=== PATIENT | male | born 1950 | race Caucasian/White ===

== ENCOUNTER 2016-11-01 11:39 | Emergency (ER) | payer MEDICARE, OTHER ==
--- NOTE | 2016-11-01 13:23 | RAD ---
CHEST - 2 VIEWS COMPARISON: Chest 2 views, 08/28/2014 HISTORY: Cough for 4 days. Productive yellow sputum. FINDINGS: Views: Frontal and lateral chest Lungs: Normal Heart and vessels: Normal Trachea and bronchi: Normal Mediastinum and sang: Normal Costophrenic sulci: Normal Chest wall and bones: Normal. Upper abdomen: Normal. IMPRESSION: Negative 2 view chest.
== END 2016-11-01 13:38 | disposition home or self-care (01) ==
LOC: ED 11:39
DX: J40 Bronchitis, not specified as acute or chronic (principal); I48.91 Unspecified atrial fibrillation; I25.2 Old myocardial infarction; I10 Essential (primary) hypertension; E11.9 Type 2 diabetes mellitus without complications; Z79.01 Long term (current) use of anticoagulants; Z79.84 Long term (current) use of oral hypoglycemic drugs

== ENCOUNTER 2016-12-10 07:07 | Day surgery (SDC) | payer MEDICARE, OTHER ==
[~2016-12-10 07:07] MED LIST: FENTANYL 250 MCG/5 ML AMP IV PRN; LACTATED RINGERS 1,000 ML IV SCH; LIDOCAINE Viscous 2% 15 ML UDCUP PO PRN; MIDAZOLAM HCL 5 MG/5 ML VIAL IV PRN
[2016-12-10] MEDS ORDERED: IV START KIT ONE (07:35)
[2016-12-10] MEDS ORDERED: LACTATED RINGERS 1,000 ML ONE (07:35)
[2016-12-10] MEDS ORDERED: LIDOCAINE Viscous 2% 15 ML UDCUP ONE (08:54)
[2016-12-10] MEDS ORDERED: PROPOFOL 20 ML IV ONE (08:55)
[2016-12-10] MEDS ORDERED: ALBUTEROL/IPRATROPIUM 2.5/0.5 MG 3 ML/EACH DOSE ONE (09:13)
[2016-12-10] MEDS ORDERED: ALBUTEROL/IPRATROPIUM 2.5/0.5 MG 3 ML/EACH DOSE NEB ONE (09:17)
--- NOTE | 2016-12-14 10:21 | SURGPATH ---
[facility] [address] [place] [id number] Patient Name: KAYA ZURITA MR#: [id number] : 1950 Gender: M Specimen #: [id number] Collected: 12/10/2016 Received: 12/13/2016 Reported: 12/14/2016 Submitting Phys: YUVAL DIEHL Copy To Phys: SILV [facility] OLIVIA SHAH Clinical History / Pre-Operative Diagnosis: NON-ALCOHOLIC CIRRHOSIS Specimen Source / Surgical Procedure Performed: ANTRAL BIOPSY Interpretation: GASTRIC ANTRUM, BIOPSY: - NO PATHOLOGIC ABNORMALITIES Electronically Signed Out Urbano Max M.D. Gross Description: The specimen is received in a formalin filled container labeled with the patient's name and "antral biopsy". Two holland biopsies are 0.2 and 0.5 cm. Totally embedded in one cassette. Adama Glover Microscopic Description: The sections show fragments of gastric mucosa exhibiting a normal architectural pattern. There are no inflammatory or neoplastic features and there are no Helicobacter-like organisms identified. 1: [id number] K74.69
== END 2016-12-10 09:52 | disposition home or self-care (01) ==
LOC: SDC 07:07
PROVIDERS: ATTEND Internal Medicine Gastroenterology
PROC: 0DB68ZX Excision of Stomach, Via Natural or Artificial Opening Endoscopic, Diagnostic (ICD-10-PCS; principal; 2016-12-10)
DX: K74.69 Other cirrhosis of liver (principal); K29.70 Gastritis, unspecified, without bleeding; K29.80 Duodenitis without bleeding; I48.91 Unspecified atrial fibrillation; E11.9 Type 2 diabetes mellitus without complications; I10 Essential (primary) hypertension; E78.5 Hyperlipidemia, unspecified; F32.9 Major depressive disorder, single episode, unspecified; Z79.84 Long term (current) use of oral hypoglycemic drugs
CPT/HCPCS: 43239; A9270; J7120